=== PATIENT | male | born 1940 | race Caucasian/White ===

== ENCOUNTER 2018-04-04 09:34 | Day surgery (SDC) | payer OTHER ==
[2018-04-04] MEDS ORDERED: NS 500 ML IV ONE (09:37)
[2018-04-04] MEDS ORDERED: fentaNYL 100 MCG/2 ML INJ IVP ONE (09:37)
[2018-04-04] MEDS ORDERED: MIDAZOLAM 2 MG/2 ML VIAL IVP ONE (09:37)
[2018-04-04] MEDS ORDERED: BENZOCAINE UNIT DOSE SPRAY HURRICAINE MM ONE (09:37)
--- NOTE | 2018-04-04 11:47 | PDHPUP ---
History & Physical Update H&P update statement: This history and physical update is based on an assessment of the patient which was completed after admission or registration (within 24 hours), but prior to the surgery/procedure. H&P update: H&P reviewed & patient examined, no change in patient's condition since H&P completed
--- NOTE | 2018-04-04 11:47 | PDANEPAE ---
ANE Past Medical History - Cardiovascular History Hx Hypertension: No Hx Arrhythmias: Yes Hx Chest Pain: No Hx Coronary Artery / Peripheral Vascular Disease: No Hx CHF / Valvular Disease: No Hx Palpitations: Yes Cardiovascular History Comment: ATRIAL FIB. RUNS LOW BP - Pulmonary History Hx COPD: No Hx Asthma/Reactive Airway Disease: No Hx Recent Upper Respiratory Infection: No Hx Oxygen in Use at Home: No Hx Sleep Apnea: No - Neurologic History Hx Cerebrovascular Accident: No Hx Seizures: No Hx Dementia: No Neurologic History Comment: CHILDHOOD SEIZURE x1. OCCAS MIGRAINES - Endocrine History Hx Diabetes: No Endocrine History Comment: HYPOTHYROID - Renal History Hx Renal Disorders: No Renal History Comment: KIDNEY STONES IN 20s - Liver History Hx Hepatic Disorders: No - Neurological & Psychiatric Hx Hx Neurological and Psychiatric Disorders: No - Cancer History Hx Cancer: No - Congenital Disorder History Hx Congenital Disorders: No - GI History Hx Gastrointestinal Disorders: No - Other Health History Other Health History: NEGNEG - Chronic Pain History Chronic Pain: No - Surgical History Prior Surgeries: CARDIOVERSIONS X3. KNEE SURG R. PLASTIC SURG. left carotid endartectomy 3 weeks ago ANE Review of Systems Review of Systems: ANE Patient History - Allergies Allergies/Adverse Reactions: No Known Allergies Allergy (Verified 05/06/16 13:48) - Home Medications Home Medications: Herbals/Supplements -Info Only 1 each PO AD 07/14/12 [Last Taken 04/03/18] Vitamin B Complex [Vitamin B Complex (OTC)] 1 each PO HS 07/14/12 [Last Taken 20:00] Metoprolol Succinate 50 mg PO DAILY #0 03/02/16 [Last Taken 04/03/18] Rivaroxaban [Xarelto] 20 mg PO DAILY #0 03/02/16 [Last Taken 04/03/18 20:00] Ascorbic Acid [Vitamin C 500 mg (*)] 500 mg PO DAILY 04/15/16 [Last Taken ] Cetirizine [ZyrTEC 10 mg (*)] 10 mg PO DAILY 04/15/16 [Last Taken 04/04/18] Levothyroxine [Synthroid 75 mcg (*)] 75 mcg PO DAILY06 04/15/16 [Last Taken ] Multivitamins [Multivitamin (*)] 1 each PO DAILY 04/15/16 [Last Taken 04/03/18] Bartley-3 Fatty Acids [Fish Oil 1000 mg (*)] 1,000 mg PO DAILY 04/15/16 [Last Taken 04/03/18] Digoxin 04/04/18 [Last Taken 04/03/18] - Smoking Hx Smoking Status: Former smoker - Family Anes Hx Family Hx Anesthesia Complications: NEG ANE Labs/Vital Signs - Vital Signs Height: 182.88 cm Weight: 77.111 kg ANE Physical Exam - Airway Neck exam: FROM Mallampati Score: Class 2 Mouth exam: normal dental/mouth exam - Pulmonary Pulmonary: no respiratory distress, no rales or rhonchi, clear to auscultation - Cardiovascular Cardiovascular: irregularly irregular - ASA Status ASA Status: III ANE Anesthesia Plan Anesthesia Plan: GA with mask
[2018-04-04] MEDS ORDERED: PROPOFOL 200 MG/20 ML VIAL ONE (12:10)
== END 2018-04-04 14:03 | disposition home or self-care (01) ==
LOC: FCATH 09:34
PROVIDERS: ATTEND Internal Medicine Cardiovascular Disease
PROC: B245ZZ4 Ultrasonography of Left Heart, Transesophageal (ICD-10-PCS; principal; 2018-04-04)
DX: I48.2 Chronic atrial fibrillation (principal); I73.9 Peripheral vascular disease, unspecified; I34.0 Nonrheumatic mitral (valve) insufficiency; I34.1 Nonrheumatic mitral (valve) prolapse
CPT/HCPCS: J2250; J2704; J3010

== ENCOUNTER 2018-04-18 07:31 | Day surgery (SDC) | payer OTHER ==
[2018-04-18] MEDS ORDERED: ASPIRIN EC 325 MG TAB PO ONE (07:34)
[2018-04-18] MEDS ORDERED: NS 1,000 ML IV ONE (07:34)
[2018-04-18] MEDS ORDERED: DIAZEPAM 5 MG TAB PO ONE (07:34)
[2018-04-18] MEDS ORDERED: diphenhydrAMINE 25 MG CAP PO ONE (07:34)
[2018-04-18] MEDS ORDERED: FAMOTIDINE 20 MG TAB PO ONE (07:34)
[2018-04-18 08:26] LABS: PLATELET COUNT 166 10^3/uL (150-400)
[2018-04-18 08:33] LABS: INR 1.01 (0.83-1.16); PROTIME(PATIENT) 13.5 SEC (12.0-15.0)
[2018-04-18] MEDS ORDERED: fentaNYL 100 MCG/2 ML INJ ONE (08:45)
[2018-04-18] MEDS ORDERED: LIDOCAINE 1% 300 MG/30 ML SDV ONE (08:45)
[2018-04-18] MEDS ORDERED: VERAPAMIL 5 MG/2 ML VIAL ONE (08:46)
[2018-04-18] MEDS ORDERED: MIDAZOLAM 2 MG/2 ML VIAL ONE (08:46)
[2018-04-18] MEDS ORDERED: IOPAMIDOL (ISOVUE-370) 150 ML BTL IV ONE (08:46)
[2018-04-18] MEDS ORDERED: HEPARIN 10,000 UNIT/10 ML MDV (1,000 UNIT/ML) ONE (08:46)
--- NOTE | 2018-04-18 08:54 | PDPROPOC ---
Sedation Plan of Care Sedation Plan of Care: vital signs stable, mental status noted, patient educated of risks, benefits, alternatives, patient can tolerate sedation ASA Classification: ASA 2 Planned drugs: fentanyl, midazolam Mallampati Score: Class 1 Mallampati Reference Image: Patient passed 3-3-2 rule?: Yes
[2018-04-18] MEDS ORDERED: ATROPINE SULFATE 1 MG/10 ML SYR IVP PRN (10:00)
--- NOTE | 2018-04-18 10:04 | PDDXCAT ---
Diagnostic Cath Note - . Date: 04/18/18 Radio Adjuster: Amalia Indication: other (Preoperative for planned mitral and tricuspid valve repair.) - Procedure Access: right wrist Procedure: left heart catheterization, coronary angiography, left ventriculogram , right heart catheterization - Materials Left Heart Cath size: 5F Left Heart Cath materials: JL3.5, JR4.0 Right Heart Cath size: 5F Right Heart Cath materials: PWP catheter - Findings-Left Heart Catheterization LM: Short, appropriate bifurcation into the left anterior descending and circumflex. Angiographically free of disease. LAD: Moderate caliber transapical vessel. Single principal diagonal branch. In the proximal segment there is a 30-40% lesion noted. Otherwise the vessel is free of disease. LCX: Codominant with the right coronary artery. There is a small 1st obtuse marginal branch, a large 2nd obtuse marginal branch, a small posterolateral branch and a small posterior descending artery. Angiographically free of disease. RCA: Moderate caliber vessel. Codominant with the circumflex. A PDA is noted as well as a very small posterolateral branch. Angiographically free of disease. EDP: 124/10/18 mmHg. LVEF: 55%. No regional wall motion abnormalities. 2 to 3+ mitral regurgitation. The visualized portions of the thoracic aorta are normal caliber. - Findings-Right Heart Catheterization RA: 15 mmHg. RV: 49/9/17 mmHg. PA: 49/29/35 mmHg. PAOP: 27 mmHg. AO: 120/66/91 mmHg CO: 4.85 liters/minute. CI: 2.42 liters/minute per meter squared. Complications: None. Estimated blood loss: <50ml Closure method: TR Band Assessment: 1. Nonobstructive coronary artery disease with evidence of a 30-40 % lesion in the proximal LAD. 2. Preserved left ventricular systolic function with an ejection fraction of 50-55% without regional wall motion abnormalities. 3. Known moderate to severe mitral regurgitation noted to be 2 to 3+ on left ventriculography. 4. Moderate pulmonary hypertension with an elevated pulmonary artery occlusive pressure. 5. Low normal cardiac output. 6. History of chronic atrial fibrillation. Plan: The patient will be referred to cardiothoracic surgery for consideration of a mitral and tricuspid valve repair. Intervention: None. Patient Problems: Problems Problem Status Onset Carotid stenosis, right Acute
--- NOTE | 2018-04-18 23:16 | CPEKG ---
Test Reason : OPEN Blood Pressure : / mmHG Vent. Rate : 084 BPM Atrial Rate : 000 BPM P-R Int : 084 ms QRS Dur : 079 ms QT Int : 369 ms P-R-T Axes : 000 -09 020 degrees QTc Int : 437 ms Atrial fibrillation Ventricular premature complex Nonspecific ST and T wave abnormality Confirmed by Carter Lowe ([id number]) on 04/18/2018 11:16:18 PM Referred By: Confirmed By:Carter Lowe
== END 2018-04-18 14:00 | disposition home or self-care (01) ==
LOC: FCATH 07:31
PROVIDERS: ATTEND Internal Medicine Cardiovascular Disease
DX: Z01.810 Encounter for preprocedural cardiovascular examination (principal); I48.2 Chronic atrial fibrillation; I34.0 Nonrheumatic mitral (valve) insufficiency; I36.1 Nonrheumatic tricuspid (valve) insufficiency; I27.20 Pulmonary hypertension, unspecified; E78.5 Hyperlipidemia, unspecified; Z79.01 Long term (current) use of anticoagulants
CPT/HCPCS: C1769; J1644; J2250; J3010; Q9967

== ENCOUNTER 2018-04-26 08:45 | Inpatient (IN) | payer OTHER ==
[~2018-04-26 08:45] MED LIST: AMINOCAPROIC ACID 5 GM/20 ML VIAL IV ONE; CARDIOPLEGIC SOLUTION 1,052.8 ML PF ONE; INSULIN REGULAR HUMAN 100 UNIT in NS 100 ML IV ONE; MANNITOL 25% 12.5 GM/50 ML VIAL IVP ONE; PHENYLEPHRINE HCL 50 MG in NS 250 ML IV ONE; VASOPRESSIN 25 UNIT in NS 250 ML IV ONE
[2018-04-26] MEDS ORDERED: CITRATE DEXTROSE SOLN 500 ML BAG MISC ONE (11:28)
[2018-04-26] MEDS ORDERED: LIDOCAINE 1% 2 ML INJ ID PRN (11:28)
[2018-04-26] MEDS ORDERED: MUPIROCIN 2% 22 GM OINT NS ONE (11:28)
[2018-04-26] MEDS ORDERED: ceFAZolin 2 GM/DEXTROSE 100 ML IV ONE (11:28)
[2018-04-26] MEDS ORDERED: LR 1,000 ML IV ONE (11:32)
--- NOTE | 2018-04-26 12:48 | PDHPUP ---
History & Physical Update H&P update statement: This history and physical update is based on an assessment of the patient which was completed after admission or registration (within 24 hours), but prior to the surgery/procedure. H&P update: H&P reviewed & patient examined
[2018-04-26] MEDS ORDERED: CALCIUM CHLORIDE 1 GM/10 ML INJ ONE ×3 (13:00→13:05)
[2018-04-26] MEDS ORDERED: HEPARIN 10,000 UNIT/10 ML MDV (1,000 UNIT/ML) ONE ×2 (13:03→13:05)
[2018-04-26] MEDS ORDERED: PROTAMINE SULFATE 50 MG/5 ML VIAL IVP ONE (13:03)
[2018-04-26] MEDS ORDERED: MILRINONE/DEXTROSE/100 ML BAG IV ONE (13:03)
[2018-04-26] MEDS ORDERED: NA BICARBONATE 50 MEQ/50 ML VIAL ONE (13:03)
[2018-04-26] MEDS ORDERED: DOPamine/DEXTROSE 400 MG/250 ML BAG IV ONE (13:03)
[2018-04-26] MEDS ORDERED: ceFAZolin 1 GM VIAL ONE (13:04)
[2018-04-26] MEDS ORDERED: niCARdipine/NACL/200 ML BAG IV ONE (13:04)
[2018-04-26] MEDS ORDERED: NITROGLYCERIN/D5W 50 MG/250 ML BOTTLE IV ONE (13:04)
[2018-04-26] MEDS ORDERED: AMIODARONE HCL 150 MG/3 ML VIAL ONE ×2 (13:04→13:05)
[2018-04-26] MEDS ORDERED: ALBUMIN 5% 250 ML BOTTLE IV ONE ×3 (13:04→20:47)
[2018-04-26] MEDS ORDERED: ADENOSINE 6 MG/2 ML VIAL ONE (13:04)
[2018-04-26] MEDS ORDERED: LIDOCAINE 2% 100 MG/5 ML SYR ONE ×2 (13:05→13:32)
[2018-04-26] MEDS ORDERED: CITRATE DEXTROSE SOLN 500 ML BAG ONE (13:05)
[2018-04-26] MEDS ORDERED: MAGNESIUM SULFATE 1 GM/2 ML VIAL ONE (13:05)
[2018-04-26] MEDS ORDERED: methylPREDNISolone SOD SUCC 1 GM/8 ML VIAL ONE (13:06)
[2018-04-26] MEDS ORDERED: MIDAZOLAM 2 MG/2 ML VIAL IVP ONE (13:18)
--- NOTE | 2018-04-26 13:20 | PDANEPAE ---
ANE History of Present Illness MVR/TVR for MR/TR ANE Past Medical History - Cardiovascular History Hx Hypertension: No Hx Arrhythmias: Yes Hx Chest Pain: No Hx Coronary Artery / Peripheral Vascular Disease: No Hx CHF / Valvular Disease: No Hx Palpitations: Yes Cardiovascular History Comment: ATRIAL FIB. RUNS LOW BP - Pulmonary History Hx COPD: No Hx Asthma/Reactive Airway Disease: No Hx Recent Upper Respiratory Infection: No Hx Oxygen in Use at Home: No Hx Sleep Apnea: No Sleep Apnea Screening Result - Last Documented: Negative - Neurologic History Hx Cerebrovascular Accident: No Hx Seizures: No Hx Dementia: No Neurologic History Comment: CHILDHOOD SEIZURE x1. OCCAS MIGRAINES - Endocrine History Hx Diabetes: No Endocrine History Comment: HYPOTHYROID - Renal History Hx Renal Disorders: No Renal History Comment: KIDNEY STONES IN 20s - Liver History Hx Hepatic Disorders: No - Neurological & Psychiatric Hx Hx Neurological and Psychiatric Disorders: No - Cancer History Hx Cancer: No - Congenital Disorder History Hx Congenital Disorders: No - GI History Hx Gastrointestinal Disorders: No - Other Health History Other Health History: NEGNEG - Chronic Pain History Chronic Pain: No - Surgical History Prior Surgeries: CARDIOVERSIONS X3. KNEE SURG R. PLASTIC SURG. left carotid endartectomy 3 weeks ago ANE Review of Systems Review of Systems: - Exercise capacity Exercise capacity: >=4 METS METS (RN): 5 METS ANE Patient History - Allergies Allergies/Adverse Reactions: atorvastatin [From Lipitor] Allergy (Verified 04/19/18 16:52) muscle aches & "every side effect possible" - Home Medications Home medications: home medication list seen and reviewed Home Medications: Herbals/Supplements -Info Only 1 each PO AD 07/14/12 [Last Taken 04/24/18] Vitamin B Complex [Vitamin B Complex (OTC)] 1 each PO HS 07/14/12 [Last Taken ] Metoprolol Succinate 50 mg PO HS #0 03/02/16 [Last Taken 04/24/18] Rivaroxaban [Xarelto] 20 mg PO HS #0 03/02/16 [Last Taken 04/13/18] Ascorbic Acid [Vitamin C 500 mg (*)] 500 mg PO DAILY 04/15/16 [Last Taken ] Cetirizine [ZyrTEC 10 mg (*)] 10 mg PO DAILY 04/15/16 [Last Taken 04/25/18] Levothyroxine [Synthroid 75 mcg (*)] 75 mcg PO DAILY06 04/15/16 [Last Taken ] Multivitamins [Multivitamin (*)] 1 each PO DAILY 04/15/16 [Last Taken 04/24/18] Digoxin [Lanoxin 250 mcg (RX)] 250 mcg PO HS 04/18/18 [Last Taken 04/24/18] Pravastatin Sodium [Pravachol] 10 mg PO HS 04/18/18 [Last Taken 04/24/18] Sildenafil Citrate [Viagra 50 MG (*)] 100 mg PO DAILY PRN 04/18/18 [Last Taken Unknown] - NPO status NPO Status: no food or drink >8 hours NPO Since - Liquids (Date): 04/26/18 NPO Since - Liquids (Time): 10:30 NPO Since - Solids (Date): 04/25/18 NPO Since - Solids (Time): 22:00 - Anes Hx Anes Hx: no prior problems - Smoking Hx Smoking Status: Former smoker - Alcohol Use Alcohol Use: None - Family Anes Hx Family Anes Hx: none Family Hx Anesthesia Complications: NEG ANE Labs/Vital Signs - Vital Signs Blood Pressure: 127/107 Heart Rate: 109 Respiratory Rate: 18 O2 Sat (%): 97 Height: 182.88 cm Weight: 73.936 kg ANE Physical Exam - Airway Neck exam: FROM Mallampati Score: Class 2 Mouth exam: normal dental/mouth exam - Pulmonary Pulmonary: no respiratory distress - Cardiovascular Cardiovascular: irregularly irregular - ASA Status ASA Status: III ANE Anesthesia Plan Anesthesia Plan: general endotracheal anesthesia Lines/Monitors: arterial line, central line, DIONICIO (also a PA catheter)
[2018-04-26] MEDS ORDERED: MIDAZOLAM 2 MG/2 ML VIAL ONE ×2 (13:29→13:30)
[2018-04-26] MEDS ORDERED: PROPOFOL/EMULSION 500 MG/50 ML BOTTLE IV ONE (13:30)
[2018-04-26] MEDS ORDERED: REMIFENTANIL HCL 1 MG VIAL ONE (13:30)
[2018-04-26] MEDS ORDERED: fentaNYL 250 MCG/5 ML INJ ONE (13:30)
[2018-04-26] MEDS ORDERED: DEXMEDETOMIDINE HCL 400 MCG in NS 100 ML IV SCH (13:30)
[2018-04-26] MEDS ORDERED: ePHEDrine SULFATE 25 MG/5 ML SYR ONE (13:33)
[2018-04-26] MEDS ORDERED: PHENYLEPHRINE HCL 100 MCG/ML SYR ONE (13:33)
[2018-04-26] MEDS ORDERED: DEXAMETHASONE 4 MG/ML VIAL ONE ×2 (15:14)
[2018-04-26] MEDS ORDERED: ONDANSETRON 4 MG/2 ML VIAL ONE (15:14)
[2018-04-26] MEDS ORDERED: ROCURONIUM 100 MG/10 ML VIAL ONE (15:14)
--- NOTE | 2018-04-26 17:47 | POSTOPPROG ---
Post Op Note Date of Operation: 04/26/18 Surgeon: Leonard Fleming Assistant: Emily Rizo Anesthesiologist: Patrick Norris Anesthesia: GET(General Endotracheal) Pre-op Diagnosis: mitral valve regurgitation, tricuspid valve regurgitation, chronic AF Post-op Diagnosis: same Procedure: complex MV repair, TVA, bilateral PVI w bipolar RF, suture ligation DILLON Inf/Abcess present in the surg proc area at time of surgery?: No Drains: Other (rt pleural tube, mediastinal tube)
[2018-04-26] MEDS ORDERED: LACTULOSE 20 GM/30 ML UDCUP PO PRN (17:49)
[2018-04-26] MEDS ORDERED: METOCLOPRAMIDE 10 MG/2 ML VIAL IVP PRN (17:49)
[2018-04-26] MEDS ORDERED: POLYETHYLENE GLYCOL 3350 17 GM PKT PO PRN (17:49)
[2018-04-26] MEDS ORDERED: POTASSIUM Cl (KCl) 50 ML IV PRN (17:49)
[2018-04-26] MEDS ORDERED: MAGNESIUM HYDROXIDE 30 ML UDCUP PO PRN (17:49)
[2018-04-26] MEDS ORDERED: ONDANSETRON DISINTEGRATING 4 MG TAB PO PRN (17:49)
[2018-04-26] MEDS ORDERED: D50W 25 GM/50 ML SYR IVP PRN (17:49)
[2018-04-26] MEDS ORDERED: KETOROLAC 15 MG/1 ML SDV IVP PRN (17:49)
[2018-04-26] MEDS ORDERED: CEPACOL LOZENGE PO PRN (17:49)
[2018-04-26] MEDS ORDERED: BISACODYL 10 MG SUPP PR PRN (17:49)
[2018-04-26] MEDS ORDERED: ONDANSETRON 4 MG/2 ML VIAL IVP PRN (17:49)
[2018-04-26] MEDS ORDERED: SODIUM CL NASAL 45 ML BTL EACHNARE PRN (17:49)
[2018-04-26] MEDS ORDERED: ACETAMINOPHEN 650 MG SUPP PR PRN (17:49)
[2018-04-26] MEDS ORDERED: MEPERIDINE 25 MG/0.5 ML AMP IVP PRN (17:49)
[2018-04-26] MEDS ORDERED: fentaNYL 100 MCG/2 ML INJ ONE ×2 (17:50→18:22)
[2018-04-26] MEDS ORDERED: INSULIN REGULAR HUMAN 100 UNIT in NS 100 ML IV SCH (18:00)
[2018-04-26] MEDS ORDERED: NS 1,000 ML IV SCH (18:00)
[2018-04-26] MEDS: ALBUMIN 5% 250 ML IV PRN ×2 (18:30→18:57)
[2018-04-26] MEDS ORDERED: HYDROmorphONE/DILAUDID 1 MG/ML INJ IVP PRN (18:36)
--- NOTE | 2018-04-26 18:59 | PDMN ---
Medical Necessity Medical necessity: MCG:S290 cardiac valve replacement/ repair 5 days OP: complex MV repair, TVA, bilat. PVI w bipolar RF, suture ligation DILLON
[2018-04-26] MEDS ORDERED: fentaNYL 100 MCG/2 ML INJ IVP ONE (19:15)
[2018-04-26] MEDS ORDERED: DOBUTamine/DEXTROSE 250 ML IV SCH (19:30)
[2018-04-26] MEDS ORDERED: FAMOTIDINE 20 MG/NACL 50 ML IV SCH (21:00)
[2018-04-26] MEDS ORDERED: CHLORHEXIDINE GLUCONATE 15 ML UDL PO SCH (21:00)
[2018-04-26] MEDS: ceFAZolin 2 GM/DEXTROSE 100 ML IV SCH (22:34)
[2018-04-26] MEDS: MUPIROCIN 2% 22 GM OINT NS SCH (22:35)
[2018-04-26] MEDS ORDERED: ALBUMIN 5% 250 ML IV ONE (23:00)
[2018-04-27] MEDS ORDERED: ALBUMIN 5% 250 ML IV ONE ×3 (00:30→05:00)
[2018-04-27] MEDS ORDERED: ALBUMIN 5% 250 ML BOTTLE IV ONE ×2 (03:22→04:37)
[2018-04-27 04:02] LABS: PLATELET COUNT 62 10^3/uL (150-400)
[2018-04-27] MEDS: LEVOTHYROXINE 75 MCG TAB PO SCH (06:41)
[2018-04-27] MEDS: ceFAZolin 2 GM/DEXTROSE 100 ML IV SCH ×3 (06:41→21:53)
--- NOTE | 2018-04-27 07:20 | SOAPPROG ---
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 Stable early postop course. Extubated without incident. Optimized hemodynamics on low dose dobutamine. No sig volume overload. Antithrombotic prophylaxis with Coumadin x 3 mo, target INR 2-3. Adjunctive baby ASA until INR stable in therapeutic range. Secondary TR - Amenable to ring annuloplasty. Antithrombotic prophylaxis as per MV rpr. Permanent atrial fibrillation/chronic anticoagulation on Xarelto - With sig GUSTAVO and PVI w LA exclusion undertaken in lieu of Gurrola-Maze IV. Postop rhythm sinus without tachydysrhythmia or need for backup pacing. Anticoagulation switched to coumadin as per Maze protocol. AF prophylaxis with BB as tolerated. Acute expected blood loss anemia with thrombocytopenia - Stable. No blood products transfused. No evidence active bleeding. VTE prophylaxis with SCDs until INR > 1.7. Nonobstructive CVD and CAD - Stable. Secondary prevention with baby ASA, BB and statin when appropriate Plan: Routine POD#1 orders re lines, wires, orals and mobility. Stop dobutamine. Colloid prn CVP < 15. Lasix prn CVP > 20. D/C toradol. Mobilize. Probable tx to PCU later today. 04/27/18 07:10 Subjective: Minor shoulder and back discomfort but generally thrilled to be as comfortable as he is. No nausea or dizziness. Thirsty. Objective: Vital Signs Temp Pulse Resp BP Pulse Ox 37.4 C 71 20 129/43 H 92 04/27/18 05:00 04/27/18 07:00 04/27/18 07:00 04/27/18 07:00 04/27/18 07:00 Laboratory Results 04/27/18 03:50 04/27/18 03:50 04/26/18 04/27/18 04/28/18 05:59 05:59 05:59 Intake Total 2770.3 Output Total 1300 Balance 1470.3 Holding SR with min ectopy. SBPs > 110 with CI > 2, SVO2 > 80, and acceptable UOP. Min suppl O2 req. CXR -> No PTX, mild pulm vasc congestion, left basilar atelectasis Platelet count a bit low. Physical Exam - Physical Exam General Appearance: alert, no apparent distress Respiratory: lungs clear (grossly), other (CTs x 2 y-d to pleurovac, serosang drainage, + tidal, + inducible air leak) Cardiac/Chest: regular rate, rhythm, other (Sternotomy CDI. Vwires intact.) Abdomen: normal bowel sounds, non-tender, soft Skin: warm/dry Extremities: swelling (trace) ICD10 Worksheet Patient Problems: Problems Problem Status Onset Acute blood loss anemia Acute Chronic anticoagulation Acute Chronic atrial fibrillation Acute Mitral valve regurgitation Acute S/P mitral valve repair Acute ~04/26/18 S/P tricuspid valve repair Acute ~04/26/18 Status post circumferential ablation of pulmonary vein Acute ~04/26/18 Tricuspid valve regurgitation Acute
--- NOTE | 2018-04-27 07:45 | CPEKG ---
Test Reason : OPEN Blood Pressure : / mmHG Vent. Rate : 062 BPM Atrial Rate : 063 BPM P-R Int : 142 ms QRS Dur : 078 ms QT Int : 650 ms P-R-T Axes : 000 -59 059 degrees QTc Int : 661 ms Sinus rhythm Inferior infarct, old Prolonged QT interval Low voltage Confirmed by Jhon Moncada ([id number]) on 04/27/2018 7:45:17 AM Referred By: Confirmed By:Jhon Moncada
[2018-04-27] MEDS ORDERED: ALBUMIN 5% 250 ML IV PRN (08:09)
[2018-04-27] MEDS ORDERED: ASPIRIN 81 MG CHEWABLE TAB TUBE PRN (09:00)
[2018-04-27] MEDS: HYDROmorphONE/DILAUDID 2 MG TAB PO PRN ×3 (10:31→21:53)
[2018-04-27] MEDS: PANTOPRAZOLE SODIUM 40 MG TAB PO SCH (10:33)
[2018-04-27] MEDS: ASPIRIN 81 MG CHEWABLE TAB PO SCH (10:33)
[2018-04-27] MEDS: ACETAMINOPHEN 325 MG TAB PO SCH ×3 (10:33→18:24)
[2018-04-27] MEDS: MUPIROCIN 2% 22 GM OINT NS SCH ×2 (10:41→21:54)
--- NOTE | 2018-04-27 11:11 | ASMTCMCOM ---
CM Note CM Note Notes: Patient is POD #1 complex MV repair. He is stable and doing well in the ICU. Patient lives w his partner Damaris. PT/OT have been ordered. Case Management will follow for discharge planning. Date Signed: 04/27/2018 11:01 AM Electronically Signed By:Ellen Major RN
[2018-04-27] MEDS ORDERED: traMADol 50 MG TAB PO PRN (12:23)
--- NOTE | 2018-04-27 13:07 | POSTANESTH ---
Post Anesthetic Evaluation Cardiovascular Status: Normal, Stable Respiratory Status: Normal, Stable, Tx Decrease in SpO2 Level of Consciousness/Mental Status: Can Participate in Eval, Alert and Oriented Pain Control: Adequate, Prn Tx Ordered Nausea/Vomiting Control: Adequate, Prn Tx Ordered Complications Possibly Related to Anesthesia: None Noted
[2018-04-27] MEDS ORDERED: PANTOPRAZOLE SODIUM 40 MG VIAL IVP ONE (17:49)
[2018-04-27] MEDS ORDERED: MAGNESIUM SULF 2 GM/WATER 50 ML BAG IV ONE (22:54)
[2018-04-28] MEDS: ACETAMINOPHEN 325 MG TAB PO SCH ×4 (04:38→18:18)
[2018-04-28] MEDS: LEVOTHYROXINE 75 MCG TAB PO SCH (04:42)
[2018-04-28] MEDS: HYDROmorphONE/DILAUDID 2 MG TAB PO PRN ×5 (04:42→20:40)
[2018-04-28 05:19] LABS: INR 1.47 (0.83-1.16)
[2018-04-28] MEDS: ceFAZolin 2 GM/DEXTROSE 100 ML IV SCH (05:56)
--- NOTE | 2018-04-28 07:14 | SOAPPROG ---
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 Antithrombotic prophylaxis as per Maze protocol, target INR 2-3. Adjunctive baby ASA. CTs x2 to remain one more day. Secondary TR - Amenable to ring annuloplasty. Antithrombotic prophylaxis as per MV rpr. Permanent atrial fibrillation/chronic anticoagulation on Xarelto - With sig GUSTAVO and PVI w LA exclusion undertaken in lieu of Gurrola-Maze IV. Post-op rhythm SR/JR. BB avoided. Anticoagulation switched to coumadin as per Maze protocol. Keep v- wires for now. Acute expected blood loss anemia - Stable. No blood products transfused. No evidence active bleeding. Thrombocytopenia - slight increase from yesterday. Coumadin held until platelets > 100 Nonobstructive CAD - Stable. Secondary prevention with baby ASA, BB and statin when appropriate DVT prophylaxis - SCDs. Subjective: Feels better today. Got some rest last night. Pain well-controlled. Denies SOB. Objective: Vital Signs Temp Pulse Resp BP Pulse Ox 36.8 C 61 22 H 132/51 H 94 04/28/18 04:00 04/28/18 04:00 04/28/18 04:00 04/28/18 04:00 04/28/18 04:00 Laboratory Results 04/27/18 03:50 04/28/18 04:48 04/27/18 04/28/18 04/29/18 05:59 05:59 05:59 Intake Total 2770.3 2400 Output Total 1300 890 Balance 1470.3 1510 PT 18.0 SEC (12.0-15.0) H 04/28/18 04:48 INR 1.47 (0.83-1.16) H 04/28/18 04:48 Physical Exam - Physical Exam General Appearance: WD/WN, alert, no apparent distress EENT: No scleral icterus (R), No scleral icterus (L) Neck: normal inspection Respiratory: No respiratory distress Cardiac/Chest: regular rate, rhythm, bradycardia Abdomen: non-tender, soft, No distended Skin: normal color, warm/dry Extremities: No pedal edema Neuro/Psych: no motor/sensory deficits, alert, normal mood/affect, oriented x 3 ICD10 Worksheet Patient Problems: Problems Problem Status Onset Acute blood loss anemia Acute Chronic anticoagulation Acute Chronic atrial fibrillation Acute Mitral valve regurgitation Acute S/P mitral valve repair Acute ~04/26/18 S/P tricuspid valve repair Acute ~04/26/18 Status post circumferential ablation of pulmonary vein Acute ~04/26/18 Tricuspid valve regurgitation Acute
[2018-04-28] MEDS: PANTOPRAZOLE SODIUM 40 MG TAB PO SCH (08:18)
[2018-04-28] MEDS: ASPIRIN 81 MG CHEWABLE TAB PO SCH (08:18)
[2018-04-28] MEDS: SENNOSIDES/DOCUSATE SODIUM TAB PO SCH ×2 (08:18→20:41)
[2018-04-28] MEDS: MUPIROCIN 2% 22 GM OINT NS SCH ×2 (08:22→20:41)
[2018-04-29] MEDS: HYDROmorphONE/DILAUDID 2 MG TAB PO PRN (01:10)
[2018-04-29] MEDS: ACETAMINOPHEN 325 MG TAB PO SCH ×4 (01:10→18:29)
[2018-04-29 04:24] LABS: INR 1.27 (0.83-1.16); PROTIME(PATIENT) 16.1 SEC (12.0-15.0)
--- NOTE | 2018-04-29 07:18 | SOAPPROG ---
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 Antithrombotic prophylaxis as per Maze protocol, target INR 2-3. Adjunctive baby ASA. CTs x2 to be removed today. Post-op ECHO ordered for tomorrow. Secondary TR - Amenable to ring annuloplasty. Antithrombotic prophylaxis as per Maze protocol. Permanent atrial fibrillation/chronic anticoagulation on Xarelto - With sig GUSTAVO and PVI w LA exclusion undertaken in lieu of Ugrrola-Maze IV. Post-op rhythm mainly SR/JR. Overnight developed flutter in 40s. Anticoagulation switched to Coumadin as per Maze protocol - held as platelets < 100. Maintain VVI 40. Cardiology to see regarding rhythm change. Acute expected blood loss anemia - Stable. No blood products transfused. No evidence active bleeding. Thrombocytopenia - slight increase from yesterday. Coumadin held until platelets > 100 Nonobstructive CAD - Stable. Secondary prevention with baby ASA, BB and statin when appropriate DVT prophylaxis - SCDs. Subjective: Feels well. Denies weakness/light-headedness. Unaware of rhythm change. Objective: Vital Signs Temp Pulse Resp BP Pulse Ox 36.9 C 47 L 18 125/63 H 95 04/29/18 07:05 04/29/18 07:05 04/29/18 07:05 04/29/18 07:05 04/29/18 07:05 Laboratory Results 04/29/18 04:00 04/28/18 04:48 04/28/18 04/29/18 04/30/18 05:59 05:59 05:59 Intake Total 2400 625 Output Total 890 800 Balance 1510 -175 PT 16.1 SEC (12.0-15.0) H 04/29/18 04:00 INR 1.27 (0.83-1.16) H 04/29/18 04:00 Physical Exam - Physical Exam General Appearance: WD/WN, alert, no apparent distress EENT: No scleral icterus (R), No scleral icterus (L) Neck: normal inspection Respiratory: No respiratory distress Cardiac/Chest: other (flutter) Abdomen: non-tender, soft, No distended Skin: normal color, warm/dry Extremities: No pedal edema Neuro/Psych: no motor/sensory deficits, alert, normal mood/affect, oriented x 3 ICD10 Worksheet Patient Problems: Problems Problem Status Onset Acute blood loss anemia Acute Chronic anticoagulation Acute Chronic atrial fibrillation Acute Mitral valve regurgitation Acute S/P mitral valve repair Acute ~04/26/18 S/P tricuspid valve repair Acute ~04/26/18 Status post circumferential ablation of pulmonary vein Acute ~04/26/18 Tricuspid valve regurgitation Acute
[2018-04-29] MEDS: LEVOTHYROXINE 75 MCG TAB PO SCH (08:15)
[2018-04-29] MEDS: ASPIRIN 81 MG CHEWABLE TAB PO SCH (08:16)
[2018-04-29] MEDS: PANTOPRAZOLE SODIUM 40 MG TAB PO SCH (08:16)
[2018-04-29] MEDS: SENNOSIDES/DOCUSATE SODIUM TAB PO SCH ×2 (08:16→20:52)
[2018-04-29] MEDS: TAMSULOSIN HCL 0.4 MG CAP PO SCH (08:16)
[2018-04-29] MEDS: MUPIROCIN 2% 22 GM OINT NS SCH (08:16)
[2018-04-30] MEDS: ACETAMINOPHEN 325 MG TAB PO SCH ×4 (00:46→18:29)
[2018-04-30] MEDS: LEVOTHYROXINE 75 MCG TAB PO SCH (06:17)
[2018-04-30 06:46] LABS: INR 1.15 (0.83-1.16); PROTIME(PATIENT) 14.9 SEC (12.0-15.0)
[2018-04-30] MEDS: SENNOSIDES/DOCUSATE SODIUM TAB PO SCH ×2 (08:11→20:18)
[2018-04-30] MEDS: PANTOPRAZOLE SODIUM 40 MG TAB PO SCH (08:11)
[2018-04-30] MEDS: TAMSULOSIN HCL 0.4 MG CAP PO SCH (08:11)
[2018-04-30] MEDS: ASPIRIN 81 MG CHEWABLE TAB PO SCH (08:11)
--- NOTE | 2018-04-30 08:22 | SOAPPROG ---
DEREK Progress Note Assessment/Plan: POD#4: complex MV rpr w #32 Physio ring, TVA #28 MC3 ring, bilateral PVI w bipolar radiofrequency, suture ligation left atrial appendage Bileaflet MVP w severe MR - Amenable to complex repair. Antithrombotic prophylaxis as per Maze protocol, target INR 2-3. Adjunctive baby ASA. CTs out. Post-op ECHO today. Secondary TR - Amenable to ring annuloplasty. Antithrombotic prophylaxis as per Maze protocol. Permanent atrial fibrillation/chronic anticoagulation on Xarelto - With sig GUSTAVO and PVI w LA exclusion undertaken in lieu of Gurrola-Maze IV. Initial post-op rhythm SR/JR, now in flutter in 40 with adeqaute BP. D/w cardiology who recommend no medications and just to watch. Anticoagulation with Coumadin as per Maze protocol to start today. PW to remain, with pacer set to VVI 40. Acute expected blood loss anemia - Stable. No blood products transfused. No evidence active bleeding. Thrombocytopenia - rebounding. Nonobstructive CAD - Stable. Secondary prevention with baby ASA, BB and statin when appropriate DVT prophylaxis - SCDs. Disposition - possibly home Monday without services. Subjective: Feels well. Happy to go home tomorrow if possible. Objective: Vital Signs Temp Pulse Resp BP Pulse Ox 36.7 C 47 L 18 125/57 H 95 04/30/18 08:08 04/30/18 08:08 04/30/18 08:08 04/30/18 08:08 04/30/18 08:08 Laboratory Results 04/30/18 06:25 04/30/18 06:25 04/29/18 04/30/18 05/01/18 05:59 05:59 05:59 Intake Total 625 1280 Output Total 980 1150 Balance -355 130 PT 14.9 SEC (12.0-15.0) 04/30/18 06:25 INR 1.15 (0.83-1.16) 04/30/18 06:25 Physical Exam - Physical Exam General Appearance: WD/WN, alert, no apparent distress EENT: No scleral icterus (R), No scleral icterus (L) Neck: normal inspection Respiratory: No respiratory distress Cardiac/Chest: other (flutter) Abdomen: non-tender, soft, No distended Skin: normal color, warm/dry Extremities: No pedal edema Neuro/Psych: no motor/sensory deficits, alert, normal mood/affect, oriented x 3 ICD10 Worksheet Patient Problems: Problems Problem Status Onset Acute blood loss anemia Acute Chronic anticoagulation Acute Chronic atrial fibrillation Acute Mitral valve regurgitation Acute S/P mitral valve repair Acute ~04/26/18 S/P tricuspid valve repair Acute ~04/26/18 Status post circumferential ablation of pulmonary vein Acute ~04/26/18 Tricuspid valve regurgitation Acute
--- NOTE | 2018-04-30 13:27 | ECHO ---
[email or web address] [address] Main: [phone] Fax: Transthoracic Echocardiogram Name: GLENN COLLINS MR#: [id number] Study Date: 04/30/2018 Study Time: 10:11 AM Date of : 1940 Age: 77 year(s) Height: 180.3 cm (71 in.) Weight: 77.11 kg (170 lb.) BSA: 1.97 m2 Gender: Male Examination: Echo Indication: complex MV repair #32 Physio ring/TVA #28 MC3 ring Image Quality: Good Contrast: Requested by: Bradley Burris BP: 125 mmHg/57 mmHg Heart Rate: Rhythm: Indication: complex MV repair #32 Physio ring/TVA #28 MC3 ring Procedure Staff Bowling Floor Desk Clerk: Wanda Morton RDCS Reading Physician: Chito Carranza MD Requesting Provider: Conclusions: No pericardial effusion. Ejection fraction 55%. Septal dyskinesis consistent with recent surgery. Biatrial enlargement. Annuloplasty ring in the mitral valve annulus. Trivial aortic regurgitation. Tricuspid valve annuloplasty ring. Measurements: Chambers Valvular Assessment AV/MV Valvular Assessment TV/PV Normal Normal Normal Name Value Range Name Value Range Name Value Range Ao Sharon (MM): 3.9 cm (2.2 cm-3.7 AV Vmax: 1.27 m/s (1 m/s-1.7 TV Vmax: 1.40 m/s (0.3 m/s-0.7 cm) m/s) m/s) IVSd (2D): 0.8 cm (0.6 cm-1.1 AV meanP mmHg ( - ) TV Vmean: 0.68 m/s ( - ) cm) MV E Vmax: 1.46 m/s ( - ) TV PGmax: 8 mmHg ( - ) LVDd (2D): 5.0 cm (4.2 cm-5.9 MV A Vmax: 0.35 m/s ( - ) TV PGmean: 3 mmHg ( - ) cm) MV E/A: 4.17 ( - ) TV VTI: 35.80 cm ( - ) LVDs (2D): 3.6 cm (2.1 cm-4 MV meanP mmHg ( - ) cm) MV PHT: 0.095 s ( - ) LVPWd (2D): 1.0 cm (0.6 cm-1 cm) MVA (PHT): 2.3 s ( - ) LVEF (MOD4): 56 % (>=55 %) EF Range: 55-60 % Continued Measurements: Chambers Valvular Assessment AV/MV Name Value Name Value LADs: 4.0 cm MV DecTime: 310 m/s LADs Lon.7 cm MV E' Septal: 0.04 m/s LA Area: 28.9 cm2 MV E/E' Septal: 33.30 LA Volume: 104 ml MV E/E' Lateral: 20.20 Patient: GLENN COLLINS Study Date: 04/30/2018 Page 1 of 2 10:11 AM LA Volume Index: 52.8 ml/m2 MV VTI: 53.40 cm Additional Vessels Name Value Ao Ascendin.3 cm Findings: Left Ventricle: Normal size left ventricle. No LV hypertrophy. The ejection fraction is estimated to be 55-60 %. Diastolic dysfunction is present. . LV septal motion consistent with post-op state.. Right Ventricle: Normal size right ventricle. There is a moderator band noted in the right ventricle. Left Atrium: The left atrium is moderately dilated. Right Atrium: The right atrium is mildly dilated. Mitral Valve: There is no mitral valve regurgitation. An annuloplasty ring is noted in the mitral valve position. MV mean PG is 3mmHG.. Aortic Valve: The aortic valve is normal in appearance and function. The aortic valve is tri-leaflet. Trivial aortic valve regurgitation. Tricuspid Valve: There is no tricuspid valve regurgitation. There is a tricuspid valve ring. TV mean PG is 3mmHG.. Pulmonic Valve: The pulmonic valve is normal in appearance and function. Trivial pulmonic valve regurgitation. Aorta: The aorta is normal. Pericardium: No pericardial effusion. Left side pleural effusion. (No Signature Object) Patient: GLENN COLLINS Study Date: 04/30/2018 Page 2 of 2 10:11 AM [id number]
--- NOTE | 2018-04-30 15:44 | ASMTCMCOM ---
CM Note CM Note Notes: CM met with pt, discussed home care needs. Pt requested home care services through [facility] due to transportation limitations. CM will discuss with providers as they indicated pt may not need services. CM will hold off on home care referral until able to speak with providers. Plan: Home vs Homecare services. Date Signed: 04/30/2018 03:44 PM Electronically Signed By:Cris Poole RN
[2018-04-30] MEDS ORDERED: WARFARIN SODIUM 5 MG TAB PO ONE (16:00)
--- NOTE | 2018-04-30 16:09 | SOAPPROG ---
DEREK Progress Note Assessment/Plan: Assessment: 1. Status post mitral valve repair, tricuspid valve repair, suture ligation of left atrial appendage and bilateral pulmonary vein isolation procedure. He appears to be making an expected recovery. 2. Atrial arrhythmias. He has a history of chronic atrial fibrillation which was known prior to this operation. As an outpatient he was rate controlled and treated with Xarelto. Postoperatively he has not had any atrial fibrillation however he has manifested atrial flutter and periods of time of sinus bradycardia. Fortunately, he has been asymptomatic. Currently he is not on any medications to suppress sinus or AV jose l activity. 3. Peripheral vascular disease. He is status post bilateral carotid endarterectomy. 4. History of nonischemic dilated cardiomyopathy. This was initially thought to be tachycardia induced. With both rhythm control as an outpatient and rate control as well as aggressive guideline directed medical therapy his ejection fraction achieved near normalization. 5. Anemia. Plan: Generally, we have tried to control atrial fibrillation fairly aggressively in individuals following both catheter based and surgical based therapies for atrial fibrillation however, given the fact that he had a pulmonary vein isolation procedure performed as part of his recent operation and has not had recurrent atrial fibrillation and he is manifesting significant bradycardia I think his risk for needing a permanent pacemaker with aggressive rhythm control this particular point in time exceeds the benefit that we would likely achieved. Therefore, I think we should simply anticoagulate him and continue to monitor him. If he remains in atrial flutter within the next 3-4 weeks we can consider a cardioversion at that time in the absence of antiarrhythmic therapy as our 1st attempt at rhythm control. This was discussed with him today. He agrees with this plan. 04/30/18 16:09 Subjective: He is well known to me from my outpatient clinic. He is currently postoperative day 4 following a complex mitral valve repair, tricuspid valve repair, bilateral pulmonary vein isolation and suture ligation of left atrial appendage. He is making a nice recovery in today states that he has few complaints. He notes he has minimal chest discomfort at the incision site and very mild dyspnea. He is able to ambulate without much difficulty. He has had instances of bradycardia throughout his hospitalization here. More recently, he has lapsed into atrial flutter with heart rates in the 40s and 50s. This has been asymptomatic. He had an echocardiogram done postoperatively. There is a full and separately dictated report in the chart. Prior to hospitalization he had been on beta-sky therapy which has not been continued. Objective: Vital Signs Temp Pulse Resp BP Pulse Ox 36.3 C 59 L 20 119/60 94 04/30/18 12:00 04/30/18 12:00 04/30/18 12:00 04/30/18 12:00 04/30/18 12:00 Laboratory Results 04/30/18 06:25 04/30/18 06:25 04/29/18 04/30/18 05/01/18 05:59 05:59 05:59 Intake Total 625 1280 550 Output Total 980 1150 700 Balance -355 130 -150 PT 14.9 SEC (12.0-15.0) 04/30/18 06:25 INR 1.15 (0.83-1.16) 04/30/18 06:25 Physical Exam - Physical Exam General Appearance: WD/WN, no apparent distress Neck: non-tender, full range of motion Respiratory: chest non-tender, decreased breath sounds (In the right base), No crackles, No rales, No rhonchi Cardiac/Chest: bradycardia Peripheral Pulses: 2+: carotid (R), carotid (L) Abdomen: non-tender Male Genitalia: deferred Rectal: deferred Neuro/Psych: alert, oriented x 3 ICD10 Worksheet Patient Problems: Problems Problem Status Onset Status post circumferential ablation of pulmonary vein Acute ~04/26/18 S/P tricuspid valve repair Acute ~04/26/18 S/P mitral valve repair Acute ~04/26/18 Acute blood loss anemia Acute Chronic anticoagulation Acute Tricuspid valve regurgitation Acute Mitral valve regurgitation Acute Chronic atrial fibrillation Acute
[2018-05-01] MEDS: ACETAMINOPHEN 325 MG TAB PO SCH ×4 (03:16→11:26)
[2018-05-01] MEDS: LEVOTHYROXINE 75 MCG TAB PO SCH (05:43)
[2018-05-01 06:15] LABS: INR 1.38 (0.83-1.16); PROTIME(PATIENT) 17.1 SEC (12.0-15.0)
[2018-05-01 07:45] VITALS: BP 131/69
--- NOTE | 2018-05-01 08:10 | SOAPPROG ---
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 Antithrombotic prophylaxis as per Maze protocol, target INR 2-3. Adjunctive baby ASA. CTs out. Post-op ECHO; LVEF 55%, no TR/MR. Secondary TR - Amenable to ring annuloplasty. Antithrombotic prophylaxis as per Maze protocol. Permanent atrial fibrillation/chronic anticoagulation on Xarelto - With sig GUSTAVO and PVI w LA exclusion undertaken in lieu of Gurrola-Maze IV. Initial post-op rhythm SR/JR, now in flutter in 40 with adeqaute BP. Cardiology recommends watching with possibly cardioversion in future.. Anticoagulation with Coumadin as per Maze protocol. PW to be removed today. Acute expected blood loss anemia - Stable. No blood products transfused. No evidence active bleeding. Thrombocytopenia - rebounded, stable. Nonobstructive CAD - Stable. Secondary prevention with baby ASA, BB and statin when appropriate DVT prophylaxis - SCDs. Disposition - home today without services. Subjective: Feels well. Happy to be going home. Objective: Vital Signs Temp Pulse Resp BP Pulse Ox 37.1 C 46 L 16 131/69 H 94 05/01/18 07:42 05/01/18 07:42 05/01/18 07:42 05/01/18 07:42 05/01/18 07:42 Laboratory Results 04/30/18 06:25 04/30/18 06:25 04/30/18 05/01/18 05/02/18 05:59 05:59 05:59 Intake Total 1280 1200 Output Total 1150 1525 Balance 130 -325 PT 17.1 SEC (12.0-15.0) H 05/01/18 05:50 INR 1.38 (0.83-1.16) H 05/01/18 05:50 Physical Exam - Physical Exam General Appearance: WD/WN, alert, no apparent distress EENT: No scleral icterus (R), No scleral icterus (L) Neck: normal inspection Respiratory: No respiratory distress Cardiac/Chest: other (flutter) Abdomen: non-tender, soft, No distended Skin: normal color, warm/dry Extremities: No pedal edema Neuro/Psych: no motor/sensory deficits, alert, normal mood/affect, oriented x 3 ICD10 Worksheet Patient Problems: Problems Problem Status Onset Acute blood loss anemia Acute Chronic anticoagulation Acute Chronic atrial fibrillation Acute Mitral valve regurgitation Acute S/P mitral valve repair Acute ~04/26/18 S/P tricuspid valve repair Acute ~04/26/18 Status post circumferential ablation of pulmonary vein Acute ~04/26/18 Tricuspid valve regurgitation Acute
--- NOTE | 2018-05-01 09:17 | PDDCSUM ---
Discharge Summary Discharge Summary: ADMISSION DATE: 04/26/18 DISCHARGE DATE: 05/01/18 ADMISSION DIAGNOSES 1. 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 Secondary TR 3. Permanent atrial fibrillation/chronic anticoagulation on Xarelto DISCHARGE DIAGNOSES 1. 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 Secondary TR 3. Permanent atrial fibrillation/chronic anticoagulation on Xarelto 4. Acute blood loss anemia 5. Thrombocytopenia 6. Post-op rate-controlled atrial flutter 7. Urinary retention PROCEDURES 04/26/18, Leonard Perry: Complex MV rpr w #32 Physio ring, TVA #28 MC3 ring, bilateral PVI w bipolar radiofrequency, suture ligation left atrial appendage HPI 77M with severe Mr, secondary TR, and permanent atrial fibrillation admitted for elective open heart surgery. HOSPITAL COURSE BY PROBLEM LIST 1. 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 Coumadin as per PVI ablation. 2. Permanent atrial fibrillation/chronic anticoagulation on Xarelto with post- op rate-controlled atrial flutter - s/p bilateral PVI ablation. Post-op rhythm initially sinus/junctional in 50s. Pt developed rate-controlled atrial flutter in the high 40s and low 50s. Pt asymptomatic with normal BP. Cardiology recommended to watch and wait. Xarelto switched to Coumadin with INR goal 2-3, duration as per protocol (3-6 months). Metoprolol and digoxin stopped d/t bradycardia. 3. Acute expected blood loss anemia with thrombocytopenia - no blood products transfused. Platelets with rebound. 4. Urinary retention - prompt resolution with Flomax. Pt instructed to continue Flomax for 2 weeks. CONDITION Good PERTINENT DISCHARGE CLINICAL INFORMATION Vitals: 131/69, 46 flutter, 94% on 1L/min NC, +3kg Exam: S1S2, No resp distress, ND, soft, NTP, LE with no edema BL INR: 1.38 DISPOSITION Home, self-care ACTIVITY Pt was instructed on sternal precautions, activity limitations, and which problems to call [facility] with. Please see Discharge Plan in chart for specifics. DISCHARGE MEDICATIONS Continue: Vitamins/herbal supplements, Synthroid, Zyrtec, Pravastatin New: Tylenol 650 mg q6h prn, ASA 81 mg daily, Flomax 0.4 mg daily for 2 weeks, Tramadol 50 mg q4h prn #20, Coumadin 2.5 mg daily (INR goal 2-3) Stop Xarelto, Metoprolol, Digoxin, Viagra PENDING STUDIES/LABS 1. CXR prior to surgical follow-up 2. INR 05/04 as per [facility] Coumadin [facility] FOLLOW-UP 1. Leonard Perry, 05/08/18, 1:45 PM 2. Leonard Holland, as directed
--- NOTE | 2018-05-01 09:17 | PDHOMEO2F ---
Home Oxygen Face to Face Home Orders: I certify that a physician or a nurse practitioner or physician's clerical assistant has had a lzhu-au-psyd encounter with this patient on the date of this order due to the diagnosis listed, which relates to the primary reason the patient requires home oxygen. Alternative treatments have been tried, or considered, and deemed ineffective. It is anticipated that supplemental oxygen will result in improvement with treatment. Home oxygen qualifying diagnosis: MR/TR/PAF/valvular cardiomyopathy, hypoxemia SpO2 on room air (%): 84 Frequency of home oxygen needed: continuous Home oxygen liters per minute: 1 Home oxygen delivery device: nasal cannula Concentrator: Yes E-tanks for mobility and back up: Yes If ordering portable O2, is the patient mobile in the home?: Yes I certify that, based on these findings, the home oxygen is medically necessary for this patient for the following length of time. Length of time home oxygen needed: 1 month
[2018-05-01] MEDS: TAMSULOSIN HCL 0.4 MG CAP PO SCH (09:40)
[2018-05-01] MEDS: ASPIRIN 81 MG CHEWABLE TAB PO SCH (09:40)
[2018-05-01] MEDS: PANTOPRAZOLE SODIUM 40 MG TAB PO SCH ×2 (09:40→10:01)
[2018-05-01] MEDS: SENNOSIDES/DOCUSATE SODIUM TAB PO SCH ×2 (09:40→10:00)
--- NOTE | 2018-05-01 13:53 | ASDISCHSUM ---
Discharge Information Plan Status:Has needs-TBD Medically Cleared to Leave: Discharge Date: CM D/C Disposition:Home, Routine, Self-Care ADT D/C Disposition:Home, Routine, Self-Care Projected Discharge Date: Transportation at D/C:Family Discharge Delay Reason: Follow-Up Date: Discharge Slot: Final Diagnosis: Placement Information Patient Contact Information Contact Name:CHELI Relationship: Address:[address] City:[place] Alternate Phone: State/Zip Code:[place] [address] Email: Financial Information Financial Class:Medicare Advantage Plans Primary Plan Desc:LI[employer]NE [employer] MEDICARE Primary Plan Number:[id number] Secondary Plan Desc: Secondary Plan Number: Assessment Information LACE LACE Length of stay for Answers: 4-6 days current admission Acuity / Level of Answers: Yes Care: Did the patient have an inpatient admission? Comorbidities - select Answers: Other Notes: AFib; Hypothyroid all that apply # of Emergency department Answers: 0 visits in the last 6 months Score: 8 Date Signed: 05/01/2018 01:52 PM Electronically Signed By:Deann Bennett [facility] CM Progress Note CM Note CM Note Notes: Patient is POD #1 complex MV repair. He is stable and doing well in the ICU. Patient lives w his partner Damaris. PT/OT have been ordered. Case Management will follow for discharge planning. Date Signed: 04/27/2018 11:01 AM Electronically Signed By:Ellen Major RN [facility] CM Progress Note CM Note CM Note Notes: CM met with pt, discussed home care needs. Pt requested home care services through [facility] due to transportation limitations. CM will discuss with providers as they indicated pt may not need services. CM will hold off on home care referral until able to speak with providers. Plan: Home vs Homecare services. Date Signed: 04/30/2018 03:44 PM Electronically Signed By:Cris Poole RN Intervention Information
--- NOTE | 2018-05-01 13:55 | ASMTCMCOM ---
CM Note CM Note Notes: CM spoke with physician who declined [facility] for pt as pt will be participating in a cardiac rehab program. Date Signed: 05/01/2018 01:54 PM Electronically Signed By:Deann Bennett
--- NOTE | 2018-05-02 09:56 | GOP ---
DATE OF OPERATION: 04/26/2018 SURGEON: Leonard Fleming MD AMBULANCE OFFICER: Emily Rizo, BETHANY. PREOPERATIVE DIAGNOSIS: 1. Severe mitral regurgitation. 2. Severe tricuspid regurgitation. 3. Chronic atrial fibrillation. POSTOPERATIVE DIAGNOSIS: 1. Severe mitral regurgitation. 2. Severe tricuspid regurgitation. 3. Chronic atrial fibrillation. PROCEDURE PERFORMED: 1. Mitral valve repair with closure of 2 posterior leaflet clefts in the P1 and P2 segments as well as P3, lateral commissuroplasty, and annuloplasty with a 32 mm Physio Ring. 2. Tricuspid valve repair using a 28 mm MC3 annuloplasty ring. 3. Bilateral pulmonary vein isolation using radiofrequency ablation. 4. Left atrial appendage suture ligation. FINDINGS: DESCRIPTION OF PROCEDURE: The patient was taken the operating, placed on the operating table in the supine position. After the induction of general anesthesia and single-lumen endotracheal tube intuba tion, patient was prepped and draped sterilely. A standard median sternotomy was performed. The pat ient was fully heparinized. He was cannulated with a Sarnes 8.0 soft flow aortic cannula as well as 24-Nepalese and 28-Nepalese SVC and IVC cannulae. Cardiopulmonary bypass was instituted after full hepar inization. After cardiopulmonary bypass was instituted, the left atrial appendage was suture ligated , and attention was next directed at the valvular heart disease. The cross-clamp was applied and the heart was arrested with 1 L of [place] Nido solution. The left atrium was opened. The valve was inspected. The anterior leaflet was well supported. Ther e were 2 clefts in the posterior leaflet and there was clear prolapse of what looked to be both anter ior and posterior segments in the posterior medial commissure. A commissuroplasty was then performed with 4-0 Prolene and the clefts were each individually closed with interrupted 4-0 Prolene suture. The valve was sized to a 32 mm Physio II Ring. Sutures were placed around the anulus, and the ring w as seated without difficulty. The left atrium was then closed. Attention was directed at the right atrium. This was opened, sized to a 28 mm MC3 ring, and sutures were then placed around the anulus. This ring was seated without difficulty. The right atrium was t hen closed. The pulmonary veins were isolated bilaterally and ablated with a radiofrequency device w ith 4 ablations on each side. Having completed this, the cross-clamp was next removed, and atrial an d ventricular pacing wires were placed. Mediastinal and right pleural chest drains were placed. The patient was from cardiopulmonary bypass without difficulty and the post pump transesophage al echo showed no residual mitral or tricuspid regurgitation. The protamine was then administered. The patient was decannulated. All the cannulation sites were doubly secured with Prolene suture and after hemostasis had been achieved, the heart was then covered with pericardium and fat, and the ches t was closed with #6 stainless steel wire. The subcutaneous tissue and skin were closed with running Vicryl suture. The patient tolerated the procedure well. HISTORY: The patient is a 77-year-old gentleman who is actively working but experiencing increasing fatigue and dyspnea on exertion. He has good ventricular function, but echocardiography reveals letty re tricuspid and mitral valve regurgitation as well as chronic atrial fibrillation. He was recommend ed to undergo surgical valve repair. /[id number]/MODL
== END 2018-05-01 14:21 | disposition home or self-care (01) | DRG 220 ==
LOC: F2W 11:11 → F2N 16:23 → F2W 04-28 16:55
PROVIDERS: ADMIT Thoracic Surgery (Cardiothoracic Vascular Surgery); ATTEND Thoracic Surgery (Cardiothoracic Vascular Surgery)
DX: I34.0 Nonrheumatic mitral (valve) insufficiency (principal); I34.1 Nonrheumatic mitral (valve) prolapse; I36.1 Nonrheumatic tricuspid (valve) insufficiency; D62 Acute posthemorrhagic anemia; D69.59 Other secondary thrombocytopenia; Z79.01 Long term (current) use of anticoagulants; I97.89 Other postprocedural complications and disorders of the circulatory system, not elsewhere classified; I48.92 Unspecified atrial flutter; I49.8 Other specified cardiac arrhythmias; R33.9 Retention of urine, unspecified; E78.5 Hyperlipidemia, unspecified; E03.9 Hypothyroidism, unspecified; Z23 Encounter for immunization
CPT/HCPCS: 82435-PO; 82565-PO; 82947-PO; 83605-PO; 84132-PO; 84295-PO; 84520-PO; 85014-PO; 92610-GN; 97116-GP; 97161-GP; 97165-GO; 97530-GO; 97530-GP; 97535-GO; C1768; G0008; G8987-GO-CK; G8988-GO-CI; G8996-GN-CH; G8997-GN-CH; G8998-GN-CH; J0153; J0282; J0690; J1100; J1170; J1250; J1265; J1644; J1815; J1885; J2001; J2150; J2250; J2260; J2370; J2405; J2704; J2720; J2765; J2930; J3010; J3475; J3480; P9041

== ENCOUNTER → 2018-05-08 | Outpatient (CLI) | payer OTHER | LOC: FIMAGING 12:54 | PROVIDERS: ATTEND Thoracic Surgery (Cardiothoracic Vascular Surgery) | DX: Z95.2 Presence of prosthetic heart valve (principal); J90 Pleural effusion, not elsewhere classified ==

== ENCOUNTER → 2018-05-15 | Outpatient (CLI) | payer OTHER | LOC: FIMAGING 09:53 | PROVIDERS: ATTEND Thoracic Surgery (Cardiothoracic Vascular Surgery) | DX: J90 Pleural effusion, not elsewhere classified (principal); Z95.2 Presence of prosthetic heart valve ==

== ENCOUNTER 2018-05-16 12:35 | Day surgery (SDC) | payer OTHER ==
[2018-05-16] MEDS ORDERED: ATROPINE SULFATE 1 MG/10 ML SYR IVP ONE (12:40)
[2018-05-16] MEDS ORDERED: fentaNYL 100 MCG/2 ML INJ IVP ONE (12:40)
[2018-05-16] MEDS ORDERED: MIDAZOLAM 2 MG/2 ML VIAL IVP ONE (12:40)
[2018-05-16] MEDS ORDERED: NS 500 ML IV ONE (12:40)
[2018-05-16 13:22] LABS: INR 1.5 (0.83-1.16); PROTIME(PATIENT) 18.3 SEC (12.0-15.0)
[2018-05-16] MEDS ORDERED: PROPOFOL 200 MG/20 ML VIAL ONE ×2 (14:27→14:47)
--- NOTE | 2018-05-16 14:30 | PDANEPAE ---
ANE History of Present Illness A-fib rate 120 ANE Past Medical History - Cardiovascular History Hx Hypertension: No Hx Arrhythmias: Yes Hx Chest Pain: No Hx Coronary Artery / Peripheral Vascular Disease: No Hx CHF / Valvular Disease: No Hx Palpitations: Yes Cardiovascular History Comment: ATRIAL FIB. RUNS LOW BP - Pulmonary History Hx COPD: No Hx Asthma/Reactive Airway Disease: No Hx Recent Upper Respiratory Infection: No Hx Oxygen in Use at Home: No Hx Sleep Apnea: No - Neurologic History Hx Cerebrovascular Accident: No Hx Seizures: No Hx Dementia: No Neurologic History Comment: CHILDHOOD SEIZURE x1. OCCAS MIGRAINES - Endocrine History Hx Diabetes: No Hypothyroid: No Obesity: no Endocrine History Comment: HYPOTHYROID - Renal History Hx Renal Disorders: No Renal History Comment: KIDNEY STONES IN 20s - Liver History Hx Hepatic Disorders: No - Neurological & Psychiatric Hx Hx Neurological and Psychiatric Disorders: No - Cancer History Hx Cancer: No - Congenital Disorder History Hx Congenital Disorders: No - GI History Hx Gastrointestinal Disorders: No - Other Health History Other Health History: NEGNEG - Chronic Pain History Chronic Pain: No - Surgical History Prior Surgeries: CARDIOVERSIONS X3. KNEE SURG R. PLASTIC SURG. left carotid endartectomy 3 weeks ago ANE Review of Systems Review of Systems: - Exercise capacity METS (RN): 3 METS ANE Patient History - Allergies Allergies/Adverse Reactions: atorvastatin [From Lipitor] Allergy (Verified 04/19/18 16:52) muscle aches & "every side effect possible" - Home Medications Home Medications: Herbals/Supplements -Info Only 1 each PO AD 07/14/12 [Last Taken 04/24/18] Vitamin B Complex [Vitamin B Complex (OTC)] 1 each PO HS 07/14/12 [Last Taken ] Ascorbic Acid [Vitamin C 500 mg (*)] 500 mg PO DAILY 04/15/16 [Last Taken ] Cetirizine [ZyrTEC 10 mg (*)] 10 mg PO DAILY 04/15/16 [Last Taken 05/16/18 08:00 ] Levothyroxine [Synthroid 75 mcg (*)] 75 mcg PO DAILY06 04/15/16 [Last Taken 10/27 08:00] Multivitamins [Multivitamin (*)] 1 each PO DAILY 04/15/16 [Last Taken 04/24/18] Pravastatin Sodium [Pravachol] 10 mg PO HS 04/18/18 [Last Taken 05/15/18 20:00] Amiodarone HCl 05/16/18 [Last Taken 05/15/18 20:00] Lasix 05/16/18 [Last Taken 05/15/18 20:00] Magnesium 05/16/18 [Last Taken 05/15/18 20:00] Metoprolol Tartrate 05/16/18 [Last Taken 05/16/18 08:00] Potassium Chloride 05/16/18 [Last Taken 05/15/18 20:00] - NPO status NPO Status: no food or drink >8 hours - Smoking Hx Smoking Status: Former smoker - Family Anes Hx Family Hx Anesthesia Complications: NEG ANE Labs/Vital Signs - Labs Result Diagrams: 05/16/18 13:00 - Vital Signs Height: 182.88 cm Weight: 72.575 kg ANE Physical Exam - Airway Neck exam: decreased ROM Mallampati Score: Class 2 - Pulmonary Pulmonary: no respiratory distress, no rales or rhonchi - Cardiovascular Cardiovascular: tachycardia - ASA Status ASA Status: III ANE Anesthesia Plan Total IV Anesthesia: Yes
--- NOTE | 2018-05-16 14:37 | PDHPUP ---
History & Physical Update H&P update statement: This history and physical update is based on an assessment of the patient which was completed after admission or registration (within 24 hours), but prior to the surgery/procedure. H&P update: H&P reviewed & patient examined, no change in patient's condition since H&P completed H&P changes: Patient in atrial fibrillation with RVR (>100 bpm). Subtherapeutic INR has been noted, so we will assess with DIONICIO to ensure no thrombus. Risks and benefits of this procedure addition (initially a cardioversion alone) were discussed with the patient today. Anesthesia for sedation in the room currently.
--- NOTE | 2018-05-16 15:34 | PDTEE1 ---
DIONICIO Cardioversion Procedure Procedure: electrical cardioversion, transesophageal echo Indications: atrial fibrillation Consent: signed and in chart Anticoagulation: warfarin Procedural Details: Patient with atrial fibrillation and RVR of recent development (rates were >120 bpm). Ongoing use of coumadin with subtherapeutic INR (<2.0). Surgically, the DILLON was oversewn, but given subtherapeutic INR, we opted to perform DIONICIO to ensure no thrombus/clot to the annulus of mitral valve, as well as to ensure that there was complete closure of the DILLON. Risks of these procedures, as well as discussion about anesthesia were undertaken prior to induction of sedation. Consents were all signed. Patient was placed in the left lateral position. DIONICIO (adult probe) was attempted without success. We opted to place change roof bolter to Peds probe, which was placed without difficulty, and standard views were obtained. Preliminary report: (1) Grossly normal LVEF (2) Mild "smoke" to the atrial (3) No significant atrial dilation was noted (4) No mitral regurgitation was noted (s/p annuloplasty ring) (5) Grossly normal aortic valve (trileaflet with mild sclerosis, but no stenosis) (6) No tricuspid regurgitation was noted (s/p annuloplasty ring) (7) DILLON was closed (8) Grossly normal pulmonic valve (9) No thrombus was noted Given lack of thrombus, we opted to proceed with cardioversion. Initial shock was 200 J (sync), but there were issues with connectivity from patient to defibrillator. A second defibrillator was brought in to facilitate cardioversion. A reattempt at 200 J (sync) cardioversion was successful with conversion from atrial fibrillation (120 bpm) to sinus bradycardia (50 bpm). An ectopic atrial rhythm was very briefly appreciated as well as <5 beats of junctional escape. Hypotension was briefly appreciated, but with the return to sinus rhythm, the blood pressure normalized. Patient recovered from the procedure without issues. Heart rate and blood pressure were noted to be 50 bpm (sinus) and 110/62 mm Hg. ECG was obtained, and appeared similar to that which was noted post operatively (with sinus rhythm). No complications were noted. Would have patient seen in clinic in one week for ECG and follow up. Synchronized cardioversion attempt #1: 200J Results: normal sinus rhythm Conclusions: successful DIONICIO cardioversion Patient Problems: Problems Problem Status Onset Acute blood loss anemia Acute Chronic anticoagulation Acute Chronic atrial fibrillation Acute Mitral valve regurgitation Acute S/P mitral valve repair Acute ~04/26/18 S/P tricuspid valve repair Acute ~04/26/18 Status post circumferential ablation of pulmonary vein Acute ~04/26/18 Tricuspid valve regurgitation Acute
[2018-05-16] MEDS ORDERED: ONDANSETRON 4 MG/2 ML VIAL IVP PRN (15:36)
[2018-05-16] MEDS ORDERED: NALOXONE HCL 0.4 MG/ML INJ IVP PRN (15:36)
--- NOTE | 2018-05-16 15:37 | POSTANESTH ---
Post Anesthetic Evaluation Cardiovascular Status: Similar to Pre-Op Cond Respiratory Status: Similar to Pre-op Cond. Level of Consciousness/Mental Status: Can Participate in Eval Pain Control: Adequate, Prn Tx Ordered Nausea/Vomiting Control: Adequate, Prn Tx Ordered Complications Possibly Related to Anesthesia: None Noted
--- NOTE | 2018-05-16 16:48 | CPEKG ---
Test Reason : OPEN Blood Pressure : / mmHG Vent. Rate : 063 BPM Atrial Rate : 000 BPM P-R Int : 225 ms QRS Dur : 078 ms QT Int : 506 ms P-R-T Axes : -88 -05 000 degrees QTc Int : 519 ms Sinus or ectopic atrial rhythm sinus arrest Prolonged HI interval Low voltage, extremity leads Prolonged QT interval diffuse non specific st-t changes. Confirmed by Giovanni Koehler ([id number]) on 05/16/2018 4:47:58 PM Referred By: Confirmed By:Giovanni Koehler
--- NOTE | 2018-05-17 09:50 | CPEKG ---
Test Reason : OPEN Blood Pressure : / mmHG Vent. Rate : 062 BPM Atrial Rate : 000 BPM P-R Int : 197 ms QRS Dur : 075 ms QT Int : 670 ms P-R-T Axes : 270 -17 000 degrees QTc Int : 681 ms Sinus or ectopic atrial rhythm Supraventricular bigeminy Probable left atrial enlargement Low voltage, extremity leads Nonspecific T abnormalities, lateral leads Prolonged QT interval Sinus bradycardia versus ectopic atrial rhythm is now new in comparison to prior (atrial flutter) Confirmed by Ambrocio Vazquez ([id number]) on 05/17/2018 9:50:20 AM Referred By: Confirmed By:Ambrocio Vazquez
--- NOTE | 2018-05-18 10:17 | CPEKG ---
Test Reason : OPEN Blood Pressure : / mmHG Vent. Rate : 062 BPM Atrial Rate : 000 BPM P-R Int : 197 ms QRS Dur : 075 ms QT Int : 670 ms P-R-T Axes : 270 -17 000 degrees QTc Int : 681 ms Sinus or ectopic atrial rhythm Supraventricular bigeminy Probable left atrial enlargement Low voltage, extremity leads Nonspecific T abnormalities, lateral leads Prolonged QT interval Marked sinus bradycardia Confirmed by Giovanni Koehler ([id number]) on 05/18/2018 10:16:58 AM Referred By: Confirmed By:Giovanni Koehler
== END 2018-05-16 16:45 | disposition home or self-care (01) ==
LOC: FCATH 12:35
PROVIDERS: ATTEND Internal Medicine Cardiovascular Disease
DX: I48.91 Unspecified atrial fibrillation (principal); E03.9 Hypothyroidism, unspecified; Z79.01 Long term (current) use of anticoagulants; Z87.442 Personal history of urinary calculi; Z87.891 Personal history of nicotine dependence; Z95.810 Presence of automatic (implantable) cardiac defibrillator; Z98.890 Other specified postprocedural states; Z95.2 Presence of prosthetic heart valve
CPT/HCPCS: J2704

== ENCOUNTER 2018-05-29 12:38 | Day surgery (SDC) | payer OTHER ==
[2018-05-29] MEDS ORDERED: ATROPINE SULFATE 1 MG/10 ML SYR IVP ONE (12:40)
[2018-05-29] MEDS ORDERED: MIDAZOLAM 2 MG/2 ML VIAL IVP ONE (12:40)
[2018-05-29] MEDS ORDERED: fentaNYL 100 MCG/2 ML INJ IVP ONE (12:40)
[2018-05-29] MEDS ORDERED: NS 500 ML IV ONE (12:40)
[2018-05-29 13:38] LABS: INR 3.08 (0.83-1.16); PROTIME(PATIENT) 31.6 SEC (12.0-15.0)
--- NOTE | 2018-05-29 13:58 | PDANEPAE ---
ANE History of Present Illness a-FIB ANE Past Medical History - Cardiovascular History Hx Hypertension: No Hx Arrhythmias: Yes Hx Chest Pain: No Hx Coronary Artery / Peripheral Vascular Disease: No Hx CHF / Valvular Disease: No Hx Palpitations: Yes Cardiovascular History Comment: ATRIAL FIB. RUNS LOW BP - Pulmonary History Hx COPD: No Hx Asthma/Reactive Airway Disease: No Hx Recent Upper Respiratory Infection: No Hx Oxygen in Use at Home: No Hx Sleep Apnea: No - Neurologic History Hx Cerebrovascular Accident: No Hx Seizures: No Hx Dementia: No Neurologic History Comment: CHILDHOOD SEIZURE x1. OCCAS MIGRAINES - Endocrine History Hx Diabetes: No Endocrine History Comment: HYPOTHYROID - Renal History Hx Renal Disorders: No Renal History Comment: KIDNEY STONES IN 20s - Liver History Hx Hepatic Disorders: No - Neurological & Psychiatric Hx Hx Neurological and Psychiatric Disorders: No - Cancer History Hx Cancer: No - Congenital Disorder History Hx Congenital Disorders: No - GI History Hx Gastrointestinal Disorders: No - Other Health History Other Health History: NEGNEG - Chronic Pain History Chronic Pain: No - Surgical History Prior Surgeries: CARDIOVERSIONS X3. KNEE SURG R. PLASTIC SURG. left carotid endartectomy 3 weeks ago ANE Review of Systems Review of Systems: ANE Patient History - Allergies Allergies/Adverse Reactions: atorvastatin [From Lipitor] Allergy (Verified 04/19/18 16:52) muscle aches & "every side effect possible" - Home Medications Home medications: home medication list seen and reviewed Home Medications: Herbals/Supplements -Info Only 1 each PO AD 07/14/12 [Last Taken 04/24/18] Vitamin B Complex [Vitamin B Complex (OTC)] 1 each PO HS 07/14/12 [Last Taken ] Ascorbic Acid [Vitamin C 500 mg (*)] 500 mg PO DAILY 04/15/16 [Last Taken ] Cetirizine [ZyrTEC 10 mg (*)] 10 mg PO DAILY 04/15/16 [Last Taken 05/16/18 08:00 ] Levothyroxine [Synthroid 75 mcg (*)] 75 mcg PO DAILY06 04/15/16 [Last Taken 10/27 08:00] Multivitamins [Multivitamin (*)] 1 each PO DAILY 04/15/16 [Last Taken 04/24/18] Pravastatin Sodium [Pravachol] 10 mg PO HS 04/18/18 [Last Taken 05/15/18 20:00] Amiodarone HCl 05/16/18 [Last Taken 05/15/18 20:00] Lasix 05/16/18 [Last Taken 05/15/18 20:00] Magnesium 05/16/18 [Last Taken 05/15/18 20:00] Metoprolol Tartrate 05/16/18 [Last Taken 05/16/18 08:00] Potassium Chloride 05/16/18 [Last Taken 05/15/18 20:00] - NPO status NPO Status: no food or drink >8 hours - Anes Hx Anes Hx: no prior problems - Smoking Hx Smoking Status: Former smoker - Family Anes Hx Family Hx Anesthesia Complications: NEG ANE Labs/Vital Signs - Labs Result Diagrams: 05/29/18 12:45 - Vital Signs Height: 182.88 cm Weight: 72.3 kg ANE Physical Exam - Airway Neck exam: FROM Mallampati Score: Class 2 Mouth exam: normal dental/mouth exam - Pulmonary Pulmonary: no respiratory distress - Cardiovascular Cardiovascular: regular rate and rhythym - ASA Status ASA Status: II ANE Anesthesia Plan Anesthesia Plan: MAC
[2018-05-29] MEDS ORDERED: PROPOFOL 200 MG/20 ML VIAL ONE ×3 (14:05→14:18)
[2018-05-29] MEDS ORDERED: LIDOCAINE 1% 5 ML SDV ONE (14:05)
[2018-05-29] MEDS ORDERED: ATROPINE SULFATE 1 MG/10 ML SYR ONE (14:52)
--- NOTE | 2018-05-29 15:01 | POSTANESTH ---
Post Anesthetic Evaluation Cardiovascular Status: Similar to Pre-Op Cond, Tx Hyper/Hypo-tension (Giving fluid bolus) Respiratory Status: Similar to Pre-op Cond. Level of Consciousness/Mental Status: Alert and Oriented Pain Control: Adequate, Prn Tx Ordered Nausea/Vomiting Control: Adequate, Prn Tx Ordered Complications Possibly Related to Anesthesia: None Noted
--- NOTE | 2018-05-30 13:58 | CPEKG ---
Test Reason : OPEN Blood Pressure : / mmHG Vent. Rate : 083 BPM Atrial Rate : 083 BPM P-R Int : 096 ms QRS Dur : 084 ms QT Int : 419 ms P-R-T Axes : 036 -41 079 degrees QTc Int : 493 ms Sinus rhythm Short MN interval Inferior infarct, old Confirmed by Chito Carranza ([id number]) on 05/30/2018 1:57:57 PM Referred By: Confirmed By:Chito Carranza
--- NOTE | 2018-05-30 13:58 | CPEKG ---
Test Reason : OPEN Blood Pressure : / mmHG Vent. Rate : 083 BPM Atrial Rate : 084 BPM P-R Int : 102 ms QRS Dur : 088 ms QT Int : 428 ms P-R-T Axes : 072 -34 090 degrees QTc Int : 503 ms Sinus rhythm Short UT interval Inferior infarct, old Prolonged QT interval Confirmed by Chito Carranza ([id number]) on 05/30/2018 1:58:07 PM Referred By: Confirmed By:Chito Carranza
--- NOTE | 2018-05-30 13:59 | CPEKG ---
Test Reason : OPEN Blood Pressure : / mmHG Vent. Rate : 045 BPM Atrial Rate : 045 BPM P-R Int : 243 ms QRS Dur : 088 ms QT Int : 556 ms P-R-T Axes : -87 -28 242 degrees QTc Int : 482 ms Sinus or ectopic atrial bradycardia Inferior infarct, old Lateral leads are also involved Confirmed by Chito Carranza ([id number]) on 05/30/2018 1:59:21 PM Referred By: Confirmed By:Chito Carranza
== END 2018-05-29 17:45 | disposition home or self-care (01) ==
LOC: FCATH 12:38
PROVIDERS: ATTEND Internal Medicine Cardiovascular Disease
DX: I48.0 Paroxysmal atrial fibrillation (principal); I42.8 Other cardiomyopathies; I73.9 Peripheral vascular disease, unspecified; E03.9 Hypothyroidism, unspecified; N40.0 Benign prostatic hyperplasia without lower urinary tract symptoms; N52.9 Male erectile dysfunction, unspecified; Z79.01 Long term (current) use of anticoagulants; Z87.442 Personal history of urinary calculi; Z87.891 Personal history of nicotine dependence; Z82.49 Family history of ischemic heart disease and other diseases of the circulatory system; Z98.890 Other specified postprocedural states
CPT/HCPCS: J0461; J2704

== ENCOUNTER 2018-10-17 12:30 | Day surgery (SDC) | payer OTHER ==
[2018-10-17] MEDS ORDERED: fentaNYL 100 MCG/2 ML INJ IVP ONE (12:33)
[2018-10-17] MEDS ORDERED: MIDAZOLAM 2 MG/2 ML VIAL IVP ONE (12:33)
[2018-10-17] MEDS ORDERED: NS 500 ML IV ONE (12:33)
[2018-10-17] MEDS ORDERED: ATROPINE SULFATE 1 MG/10 ML SYR IVP ONE (12:33)
[2018-10-17 13:27] LABS: INR 2.24 (0.83-1.16); PROTIME(PATIENT) 23.7 SEC (12.0-15.0)
--- NOTE | 2018-10-17 14:00 | PDANEPAE ---
ANE History of Present Illness AF for CV ANE Past Medical History - Cardiovascular History Hx Hypertension: No Hx Arrhythmias: Yes Hx Chest Pain: No Hx Coronary Artery / Peripheral Vascular Disease: No Hx CHF / Valvular Disease: No Hx Palpitations: Yes Cardiovascular History Comment: ATRIAL FIB. RUNS LOW BP - Pulmonary History Hx COPD: No Hx Asthma/Reactive Airway Disease: No Hx Recent Upper Respiratory Infection: No Hx Oxygen in Use at Home: No Hx Sleep Apnea: No - Neurologic History Hx Cerebrovascular Accident: No Hx Seizures: No Hx Dementia: No Neurologic History Comment: CHILDHOOD SEIZURE x1. OCCAS MIGRAINES - Endocrine History Hx Diabetes: No Endocrine History Comment: HYPOTHYROID - Renal History Hx Renal Disorders: No Renal History Comment: KIDNEY STONES IN 20s - Liver History Hx Hepatic Disorders: No - Neurological & Psychiatric Hx Hx Neurological and Psychiatric Disorders: No - Cancer History Hx Cancer: No - Congenital Disorder History Hx Congenital Disorders: No - GI History Hx Gastrointestinal Disorders: No - Other Health History Other Health History: NEGNEG - Chronic Pain History Chronic Pain: No - Surgical History Prior Surgeries: CARDIOVERSIONS X3. KNEE SURG R. PLASTIC SURG. left carotid endartectomy 3 weeks ago ANE Review of Systems Review of Systems: - Exercise capacity Exercise capacity: >=4 METS ANE Patient History - Allergies Allergies/Adverse Reactions: atorvastatin [From Lipitor] Allergy (Verified 04/19/18 16:52) muscle aches & "every side effect possible" - Home Medications Home Medications: Herbals/Supplements -Info Only 1 each PO AD 07/14/12 [Last Taken 04/24/18] Vitamin B Complex [Vitamin B Complex (OTC)] 1 each PO HS 07/14/12 [Last Taken ] Ascorbic Acid [Vitamin C 500 mg (*)] 500 mg PO DAILY 04/15/16 [Last Taken ] Cetirizine [ZyrTEC 10 mg (*)] 10 mg PO DAILY 04/15/16 [Last Taken 05/29/18] Levothyroxine [Synthroid 75 mcg (*)] 75 mcg PO DAILY06 04/15/16 [Last Taken 07:00] Multivitamins [Multivitamin (*)] 1 each PO DAILY 04/15/16 [Last Taken 05/28/18] Pravastatin Sodium [Pravachol] 10 mg PO HS 04/18/18 [Last Taken 05/28/18] Amiodarone HCl 400 mg PO BID 05/16/18 [Last Taken 05/29/18] Lasix 20 mg PO DAILY 05/16/18 [Last Taken 05/28/18] Magnesium 400 mg PO DAILY 05/16/18 [Last Taken 05/28/18] Potassium Chloride 20 meq PO DAILY 05/16/18 [Last Taken 05/28/18] - NPO status NPO Status: no food or drink >8 hours - Anes Hx Anes Hx: no prior problems - Smoking Hx Smoking Status: Former smoker - Alcohol Use Alcohol Use: Occasionally - Family Anes Hx Family Anes Hx: none Family Hx Anesthesia Complications: NEG ANE Labs/Vital Signs - Labs Result Diagrams: 10/17/18 13:05 - Vital Signs Vital Signs: reviewed preoperatively; see RN documention for details ANE Physical Exam - Airway Neck exam: FROM Mallampati Score: Class 2 Mouth exam: normal dental/mouth exam - Pulmonary Pulmonary: no respiratory distress, clear to auscultation - Cardiovascular Cardiovascular: regular rate and rhythym, no murmur, rub, or gallop - ASA Status ASA Status: III ANE Anesthesia Plan Anesthesia Plan: GA with mask Total IV Anesthesia: Yes
[2018-10-17] MEDS ORDERED: PROPOFOL 200 MG/20 ML VIAL ONE (14:02)
--- NOTE | 2018-10-17 14:16 | POSTANESTH ---
Post Anesthetic Evaluation Cardiovascular Status: Normal, Stable, Similar to Pre-Op Cond Respiratory Status: Normal, Stable, Similar to Pre-op Cond. Level of Consciousness/Mental Status: Can Participate in Eval, Mildly Sleepy, Arousable Pain Control: Adequate, Prn Tx Ordered Nausea/Vomiting Control: Adequate, Prn Tx Ordered Complications Possibly Related to Anesthesia: None Noted
--- NOTE | 2018-10-17 14:24 | PDCARD ---
Cardioversion Procedure Procedure: electrical cardioversion Indications: other (Atypical flutter versus left atrial tachycardia) Consent: signed and in chart Anticoagulation: warfarin Procedural Details: Pads were placed in anterior-posterior position. Synchronized cardioversion attempt #1: 100J Results: other (Ectopic atrial rhythm) Conclusions: successful cardioversion Patient Problems: Problems Problem Status Onset Acute blood loss anemia Acute Chronic anticoagulation Acute Chronic atrial fibrillation Acute Mitral valve regurgitation Acute S/P mitral valve repair Acute ~04/26/18 S/P tricuspid valve repair Acute ~04/26/18 Status post circumferential ablation of pulmonary vein Acute ~04/26/18 Tricuspid valve regurgitation Acute
--- NOTE | 2018-10-17 18:31 | CPEKG ---
Test Reason : OPEN Blood Pressure : / mmHG Vent. Rate : 088 BPM Atrial Rate : 095 BPM P-R Int : 078 ms QRS Dur : 086 ms QT Int : 362 ms P-R-T Axes : 000 -19 077 degrees QTc Int : 438 ms Atrial fibrillation Inferior infarct, old Lateral leads are also involved Confirmed by Sylvain Wing ([id number]) on 10/17/2018 6:30:27 PM Referred By: Leonard Holland Confirmed By:Sylvain Wing
--- NOTE | 2018-10-17 18:32 | CPEKG ---
Test Reason : OPEN Blood Pressure : / mmHG Vent. Rate : 044 BPM Atrial Rate : 045 BPM P-R Int : 220 ms QRS Dur : 088 ms QT Int : 612 ms P-R-T Axes : 270 -24 -88 degrees QTc Int : 524 ms Sinus or ectopic atrial bradycardia Inferior infarct, old Prolonged QT interval Confirmed by Sylvain Wing ([id number]) on 10/17/2018 6:31:32 PM Referred By: Leonard Holland Confirmed By:Sylvain Wing
--- NOTE | 2018-10-18 13:03 | CPEKG ---
Test Reason : OPEN Blood Pressure : / mmHG Vent. Rate : 045 BPM Atrial Rate : 045 BPM P-R Int : 225 ms QRS Dur : 087 ms QT Int : 620 ms P-R-T Axes : 267 -23 -58 degrees QTc Int : 537 ms Sinus or ectopic atrial bradycardia Probable left atrial enlargement Inferior infarct, old Prolonged QT interval Confirmed by Sylvain Wing ([id number]) on 10/18/2018 1:02:47 PM Referred By: Leonard Holland Confirmed By:Sylvain Wing
== END 2018-10-17 16:05 | disposition home or self-care (01) ==
LOC: FCATH 12:30
PROVIDERS: ATTEND Internal Medicine Cardiovascular Disease
PROC: 5A2204Z Restoration of Cardiac Rhythm, Single (ICD-10-PCS; principal; 2018-10-17)
DX: I48.1 Persistent atrial fibrillation (principal); I42.8 Other cardiomyopathies; I47.1 Supraventricular tachycardia; I73.9 Peripheral vascular disease, unspecified
CPT/HCPCS: J2704